=== PATIENT | male | born 1970 | race Two or more races ===

== ENCOUNTER 2023-02-13 09:12 | Emergency (ER) | payer MEDICAID, OTHER ==
[~2023-02-13] VITALS: Ht 172.7 cm; Wt 93.2 kg
[2023-02-13 09:26] VITALS: BP 127/89
== END 2023-02-13 11:29 | disposition left against medical advice (07) ==
LOC: ER 09:12
DX: I10 Essential (primary) hypertension (principal); Z53.21 Procedure and treatment not carried out due to patient leaving prior to being seen by health care provider

== ENCOUNTER 2023-12-09 12:45 | Emergency (ER) | payer MEDICAID ==
[~2023-12-09] VITALS: Ht 172.7 cm; Wt 90.6 kg
[2023-12-09 15:44] VITALS: BP 143/103; PULSE 119; RESP 16; TEMP 97; O2SAT 97
[2023-12-09] MEDS ORDERED: TRAM50TA2 PO (15:47)
[2023-12-09] MEDS: KETOROLAC TROMETH 60MG/2ML VIAL IM ONE (16:16)
== END 2023-12-09 16:40 | disposition home or self-care (01) ==
LOC: ER 12:45
DX: S82.431A Displaced oblique fracture of shaft of right fibula, initial encounter for closed fracture (principal); Z88.8 Allergy status to other drugs, medicaments and biological substances; Z79.899 Other long term (current) drug therapy; W17.89XA Other fall from one level to another, initial encounter; Y93.89 Activity, other specified; Y92.89 Other specified places as the place of occurrence of the external cause; Y99.8 Other external cause status
CPT/HCPCS: 29515; 73610; 96372; 99283; J1885

== ENCOUNTER 2024-04-16 12:57 | Emergency (ER) | payer MEDICAID, OTHER ==
[~2024-04-16] VITALS: Ht 172.7 cm; Wt 100.0 kg
[~2024-04-16 12:57] MED LIST: TRAM50TA2 PO
[2024-04-16 13:37] VITALS: BP 138/97; PULSE 110; RESP 16; TEMP 98.2; O2SAT 95
[2024-04-16] MEDS: KETOROLAC TROMETH 60MG/2ML VIAL IM ONE (14:30)
[2024-04-16] MEDS ORDERED: IBUP-1456 PO (14:38)
[2024-04-16] MEDS ORDERED: METH-1182 PO (14:38)
== END 2024-04-16 14:48 | disposition home or self-care (01) ==
LOC: ER 12:57 → EDBD 12:57 → ER 14:48
DX: S93.501A Unspecified sprain of right great toe, initial encounter (principal); S16.1XXA Strain of muscle, fascia and tendon at neck level, initial encounter; S39.012A Strain of muscle, fascia and tendon of lower back, initial encounter; Z88.8 Allergy status to other drugs, medicaments and biological substances; Z79.899 Other long term (current) drug therapy; V43.52XA Car driver injured in collision with other type car in traffic accident, initial encounter; Y93.I9 Activity, other involving external motion; Y92.89 Other specified places as the place of occurrence of the external cause; Y99.8 Other external cause status
CPT/HCPCS: 72040; 72100; 73630; 96372; 99284; J1885